=== PATIENT | male | born 1995 ===

== ENCOUNTER 2016-11-01 08:22 | Emergency (ER) | payer MEDICAID ==
[2016-11-01 08:29] VITALS: BP 116/60; PULSE 65; RESP 18; TEMP 98.2; O2SAT 98
--- NOTE | 2016-11-01 09:30 | C.PDOC ---
History Of Present Illness 20-year-old male, presents to the emergency department with requesting referral for outpatient ortho. Patient states he punched a wall, after which he was seen in urgent care. Patient is in an ulnar gutter splint, and has a known boxers fracture. No other complaints or new symptoms. Time Seen by Provider: 11/01/16 08:36 Chief Complaint (Nursing): Upper Extremity Problem/Injury History Per: Patient History/Exam Limitations: no limitations Onset/Duration Of Symptoms: Days Current Symptoms Are (Timing): Still Present Past Medical History Reviewed: Historical Data, Nursing Documentation, Vital Signs Vital Signs: Last Vital Signs Temp 98.2 F 11/01/16 08:28 Pulse 65 11/01/16 08:28 Resp 18 11/01/16 08:28 BP 116/60 11/01/16 08:28 Pulse Ox 98 11/01/16 12:18 Family History: States: No Known Family Hx - Social History Hx Alcohol Use: Yes Hx Substance Use: No Review Of Systems Respiratory: Negative for: Shortness of Breath Gastrointestinal: Negative for: Nausea, Vomiting Musculoskeletal: Positive for: Arm Pain Neurological: Negative for: Weakness, Numbness Physical Exam - Physical Exam Appears: Non-toxic, No Acute Distress Skin: Other (normal cap refill right hand) Extremity: Other (arm in an ulnar gutter splint) ED Course And Treatment O2 Sat by Pulse Oximetry: 98 Medical Decision Making Medical Decision Making: pt with known boxers fracture, has ulnar gutter splint on; cap refill normal, will give ptortho f/u. sling and nsaids. Disposition Counseled Patient/Family Regarding: Diagnosis, Need For Followup, Rx Given - Disposition Referrals: Juventino Barry MD [Staff Provider] - Disposition: HOME/ ROUTINE Disposition Time: 09:28 Condition: STABLE Additional Instructions: Keep hand elevated to avoid swelling. Ibuprofen for pain; take with food. Cold compresses to hand over splint several times a day. Follow up with ortho as soon as possible. Prescriptions: Ibuprofen [Motrin] 600 mg PO TID #30 tab Instructions: Splint Care (ED), Boxer Fracture (ED) Forms: General Discharge Instructions - Clinical Impression Clinical Impression: Boxers fracture - PA / BENDER HAND / Resident Statement MD/DO has reviewed & agrees with the documentation as recorded. - Scribe Statement The provider has reviewed the documentation as recorded by the Scribe (Sheldon Dao) All medical record entries made by the Scribe were at my direction and personally dictated by me. I have reviewed the chart and agree that the record accurately reflects my personal performance of the history, physical exam, medical decision making, and the department course for this patient. I have also personally directed, reviewed, and agree with the discharge instructions and disposition.
== END 2016-11-01 09:37 | disposition home or self-care (01) ==
LOC: C.ER 08:22
DX: S62.90XD Unspecified fracture of unspecified hand, subsequent encounter for fracture with routine healing (principal); W22.09XD Striking against other stationary object, subsequent encounter